=== PATIENT | female | born 1980 | race Caucasian/White ===

== ENCOUNTER 2021-05-15 16:54 | Emergency (ER) | payer OTHER, SELFPAY ==
[2021-05-15 17:12] VITALS: BP 141/91; PULSE 95; RESP 16; TEMP 37.1; O2SAT 99
--- NOTE | 2021-05-15 17:42 | ED.URI ---
HPI - URI/Sore Throat General Chief Complaint: Upper Respiratory Infection Stated Complaint: cough/cp/congestion Time Seen by Provider: 05/15/21 17:42 Source: patient and RN notes reviewed Mode of arrival: ambulatory Limitations: no limitations History of Present Illness HPI Narrative: 41-year-old female who is a current everyday smoker presents with concern for cough, shortness of breath and, pain to the left upper back and chest. Reports history of pneumonia and bronchitis. Reports she has been vaccinated for Covid. Reports rhinorrhea and nasal congestion. Reports history of seasonal allergies. Reports she has been taking Tessalon Perles and [id number] sinus medicine without relief. She denies fever, bodies, chills, sweats. MD elicited complaint: cough Related Data Allergies Allergy/AdvReac Type Severity Reaction Status Date / Time cephalexin Allergy Mild Unknown Verified 11/17/18 15:47 latex Allergy Mild HIVES Verified 12/18/10 12:27 Review of Systems Review of Systems: CONSTITUTIONAL: Denies malaise, chills, sweats, or fever. EYES: Denies visual changes, redness, or discharge. ENT: Reports rhinorrhea, congestion. Denies sinus pain, otalgia and sore throat. CARDIOVASCULAR: Denies chest pain, palpitations, or edema. RESPIRATORY: Reports cough, dyspnea, left upper back and chest wall pain GASTROINTESTINAL: Denies abdominal pain, nausea, vomiting, diarrhea SKIN: Denies rash or itching. MUSCULOSKELETAL: Denies myalgia. NEUROLOGIC: Denies headache. All systems reviewed & are unremarkable except as noted in HPI and below PMFSH Past Medical History Medical History (Updated 05/15/21 @ 17:56 by Tiffanie Traore NP) ADHD Anxiety Depression History of bipolar disorder Miscarriage OCD (obsessive compulsive disorder) Pneumonia Social History Social History Smoking status: Current every day smoker Alcohol intake: current Gender identity (if verbalized by the patient): Female Comments At time of signature, agree with nursing past medical, surgical, social and family history. There is no relevant family history pertinent to the presenting complaint Exam Narrative: GENERAL: Well-appearing, well-nourished, and in no acute distress. HEAD: Normocephalic EYES: PERRLA, conjunctivae clear ENT: Nares clear. Mucous membranes moist. TM pearly whitten with sharp light reflex bilaterally; no tragal tenderness. NECK: Supple. No lymphadenopathy CHEST: Clear to auscultation, breath sounds equal. No wheezing, rhonchi, rales, or stridor. No respiratory distress, speaks in full sentences. HEART: Regular rate and rhythm. No murmur heard. SKIN: Warm, dry, no rash. NEURO: Alert and oriented x3. PSYCH: Normal mood and affect Course Course Emergency Course: Patient is aware of diagnosis, understands and agrees to treatment plan. Anticipatory guidance given. Patient agrees to follow-up as directed and is aware of reasons to seek care at the emergency department. Portions of this record may have been created with voice recognition software Vital Signs Vital signs: Vital Signs Temperature 98.7 F 05/15/21 17:12 Pulse Rate 95 05/15/21 17:12 Respiratory Rate 16 05/15/21 17:12 Blood Pressure 141/91 H 05/15/21 17:12 Pulse Oximetry 99 05/15/21 17:12 Temperature 98.7 F 05/15/21 17:12 Pulse Rate 95 05/15/21 17:12 Respiratory Rate 16 05/15/21 17:12 Blood Pressure 141/91 H 05/15/21 17:12 Pulse Oximetry 99 05/15/21 17:12 Reviewed. Patient has been instructed to follow up with her primary care provider within the next week regarding her elevated blood pressure today. MDM - URI/Sore Throat MDM Narrative Medical decision making narrative: Differential diagnosis considered: George virus, strep pharyngitis, allergic rhinitis, upper respiratory tract infection, sinusitis, rhinosinusitis, nasopharyngitis. viral pharyngitis, otitis media, otitis externa, pneumonia, bronchit
== END 2021-05-15 18:00 | disposition home or self-care (01) ==
PROVIDERS: Emergency Provider Nurse Practitioner
DX: J40 Bronchitis, not specified as acute or chronic (principal); F17.200 Nicotine dependence, unspecified, uncomplicated
CPT/HCPCS: 99213; G0463

== ENCOUNTER 2021-07-30 10:00 | Emergency (ER) | payer OTHER, SELFPAY ==
[2021-07-30 10:12] VITALS: BP 159/103; PULSE 85; RESP 16; TEMP 36.4; O2SAT 100
--- NOTE | 2021-07-30 10:12 | ED.EAR ---
HPI - Ear Problem General Chief complaint: Ear Stated complaint: Ear Pain Time Seen by Provider: 07/30/21 10:15 Source: patient, family and RN notes reviewed Mode of arrival: ambulatory Limitations: no limitations History of Present Illness HPI Narrative: Charis is a 41-year-old female patient [facility] by [facility] son. Patient states she has a 3-day history of ear pain, sinus congestion and sore throat. Patient is complaining of lymph node swelling in her neck. Patient has been taking Aleve and DayQuil and NyQuil. MD Complaint: ear pain Related Data Allergies Allergy/AdvReac Type Severity Reaction Status Date / Time cephalexin Allergy Mild Unknown Verified 07/30/21 10:26 latex Allergy Mild HIVES Verified 07/30/21 10:26 Review of Systems Review of Systems: CONSTITUTIONAL: Denies body aches, fever, chills, or sweats. EYES: Denies visual changes, redness, or discharge. ENT: Denies rhinorrhea, + congestion, +sore throat, + otalgia. CARDIOVASCULAR: Denies chest pain, palpitations, or edema. RESPIRATORY: Denies cough or dyspnea. GASTROINTESTINAL: Denies abdominal pain, nausea, vomiting, or diarrhea. GENITOURINARY: Denies dysuria or hematuria. SKIN: Denies rash, itching, or wounds. MUSCULOSKELETAL: Denies back pain, joint pain, or myalgia. NEUROLOGIC: Denies headache, numbness, tingling, or weakness. PSYCH: Denies depression or anxiety. All systems reviewed & are unremarkable except as noted in HPI and below PMFSH Past Medical History Medical History (Updated 07/30/21 @ 10:27 by LISBET Ayon) ADHD Anxiety Depression History of bipolar disorder Miscarriage OCD (obsessive compulsive disorder) Pneumonia Social History Social History Smoking status: Current every day smoker Alcohol intake: current Gender identity (if verbalized by the patient): Female Exam Narrative: GENERAL: Well-appearing, well-nourished, and in no acute distress. HEAD: Normocephalic, atraumatic. EYES: EOMI. No redness or drainage. Conjunctivae normal. ENT: Mucous membranes pink and moist. Nares clear. No rhinorrhea. Bilateral TMs are dull with moderate amount of bulging; no erythema is noted. Posterior pharynx is erythemic with mild edema and no exudate. Uvula midline. NECK: Normal AROM. Supple. Anterior cervical lymphadenopathy. CHEST: No respiratory distress. Clear to auscultation. MUSCULOSKELETAL: No bony tenderness. EXTREMITIES: Normal range of motion. No edema. SKIN: Warm, dry, no rash. Capillary refill normal. Normal skin turgor. NEURO: No focal deficits. Alert and oriented x3. Gait steady. PSYCH: Normal affect. No signs of depression or anxiety. Course Vital Signs Vital signs: Vital Signs Temperature 36.4 C L 07/30/21 10:12 Pulse Rate 85 07/30/21 10:12 Respiratory Rate 16 07/30/21 10:12 Blood Pressure 159/103 H 07/30/21 10:12 Pulse Oximetry 100 07/30/21 10:12 Temperature 36.4 C L 07/30/21 10:12 Pulse Rate 85 07/30/21 10:12 Respiratory Rate 16 07/30/21 10:12 Blood Pressure 159/103 H 07/30/21 10:12 Pulse Oximetry 100 07/30/21 10:12 Reviewed. Pt has been instructed to follow up with her PCP regarding her elevated blood pressure today. Medical Decision Making MDM Narrative Medical decision making narrative: Patient has sinus congestion, ear pain and sore throat with lymph node swelling for 3 days. Patient has been using Aleve, DayQuil and NyQuil for symptom relief. Patient was educated that this is a viral illness and will most likely last up to 10 to 14 days. Patient was instructed to follow-up with her primary care physician for continued complaints after 10 days. Or sooner for worsening of symptoms. Patient will given a short burst of prednisone for relief of ear pressure and nasal congestion. Differential Diagnosis Differential Diagnosis: Pharyngitis, viral illness, nasopharyngitis Medi
== END 2021-07-30 10:35 | disposition home or self-care (01) ==
PROVIDERS: Emergency Provider Nurse Practitioner Family
DX: J00 Acute nasopharyngitis [common cold] (principal); F17.200 Nicotine dependence, unspecified, uncomplicated
CPT/HCPCS: 99213; G0463

== ENCOUNTER 2022-04-11 08:20 | Emergency (ER) | payer BC, OTHER, SELFPAY ==
[2022-04-11 08:32] VITALS: BP 155/90; PULSE 91; RESP 16; TEMP 37.1; O2SAT 99
[2022-04-11 08:43] VITALS: BP 155/90; PULSE 91; RESP 16; TEMP 37.1; O2SAT 99
--- NOTE | 2022-04-11 08:43 | ED.GENADULT ---
HPI - General Adult General Chief complaint: Dental/Oral Stated complaint: rt ear pain Time Seen by Provider: 04/11/22 08:35 Source: patient Mode of arrival: ambulatory History of Present Illness HPI narrative: 42-year-old female presented for complaint of right ear pain and swelling in front of the ear, since this morning. States it feels tender from the right temporal down to the jaw. She used warm coffee cup next to face for pain. Endorses increased sinus congestion and right chest heaviness since getting more animals at home the last few weeks. Denies dental pain/injury, nausea, vomiting, fever or chills. Denies popping/clicking or jaw sticking. Related Data Allergies Allergy/AdvReac Type Severity Reaction Status Date / Time cephalexin Allergy Mild Unknown Verified 04/11/22 08:27 latex Allergy Mild HIVES Verified 04/11/22 08:27 Review of Systems Review of Systems: CONSTITUTIONAL: Denies body aches, fever, chills ENT: Denies rhinorrhea, congestion, sore throat CARDIOVASCULAR: Denies chest pain, palpitations RESPIRATORY: Denies cough or dyspnea. SKIN: Denies rash, itching, or wounds. MUSCULOSKELETAL: Denies myalgia. NEUROLOGIC: Denies headache, numbness, tingling, or weakness. [facility] Past Medical History Medical History ADHD Anxiety Depression History of bipolar disorder Miscarriage OCD (obsessive compulsive disorder) Pneumonia Social History Social History Smoking status: Current every day smoker Alcohol intake: current Gender identity (if verbalized by the patient): Female Comments At time of signature, I have reviewed and agree with nursing past medical, surgical, social and family history unless otherwise noted. Please see nursing chart for further information. There is no relevant family history pertinent to the presenting complaint Exam Narrative: GENERAL: Appears in pain; no acute distress. HEAD: Normocephalic, atraumatic. EYES: EOMI. No redness or drainage. Conjunctivae normal. ENT: Right preauricular swelling, mild erythema, tender, with approx 2mm firm subcutaneous nodule at center c/w sialoadenitis; Mucous membranes pink and moist. TMs normal bilaterally. Throat normal. Uvula midline. NECK: Normal AROM. No lymphadenopathy. CHEST: No respiratory distress. Clear to auscultation. HEART: Regular rate and rhythm. No murmur appreciated. SKIN: Warm, dry, no rash. Normal skin turgor. NEURO: No focal deficits. Alert and oriented x3. Gait steady. Course Course Emergency Course: Patient is aware of diagnosis, understands and agrees to treatment plan. Anticipatory guidance given. Patient agrees to follow-up as directed and is aware of reasons to seek care at the emergency department. Portions of this record may have been created with voice recognition software Level of Care: Express Care Visit Vital Signs Vital signs: Vital Signs Temperature 98.8 F 04/11/22 08:32 Pulse Rate 91 04/11/22 08:32 Respiratory Rate 16 04/11/22 08:32 Blood Pressure 155/90 H 04/11/22 08:32 Pulse Oximetry 99 04/11/22 08:32 Oxygen Delivery Room Air 04/11/22 08:32 Temperature 98.8 F 04/11/22 08:43 Pulse Rate 91 04/11/22 08:43 Respiratory Rate 16 04/11/22 08:43 Blood Pressure 155/90 H 04/11/22 08:43 Pulse Oximetry 99 04/11/22 08:43 Oxygen Delivery Room Air 04/11/22 08:43 Medical Decision Making MDM Narrative Medical decision making narrative: PE and presentation c/w sialoadenitis. She also reports increased allergies r/t animals and given smoking history, she feels increased right chest heaviness. Will give Rx inhaler and advise allergic rhinitis tx in addition to sialoadenitis treatment. Aware of s/s to go to the Er. Will f/u with pcp. Differential Diagnosis Differential Diagnosis: allergic rhinitis, otitis externa, TM rupture, cholesteatoma, foreign
== END 2022-04-11 08:59 | disposition home or self-care (01) ==
PROVIDERS: Emergency Provider Nurse Practitioner Family
DX: K11.21 Acute sialoadenitis (principal); J30.9 Allergic rhinitis, unspecified
CPT/HCPCS: 99213; G0463

== ENCOUNTER 2023-08-04 09:11 | Emergency (ER) | payer BC, OTHER, SELFPAY ==
--- NOTE | ~2023-08-04 | XR_ITS ---
EXAMINATION: XR chest 2V DATE: 08/04/2023 09:41 INDICATION: Shortness of breath and cough TECHNIQUE: PA and lateral views of the chest are obtained. COMPARISON: 04/20/2019 FINDINGS: The lungs are free of acute opacities. No pleural effusion or pneumothorax. The cardiomedia stinal silhouette is normal. Partially imaged orthopedic screws are noted in the left humeral head. IMPRESSION: 1. No acute cardiopulmonary abnormality. Reviewed, dictated and finalized at location [facility]
--- NOTE | 2023-08-04 09:17 | ED.GENADULT ---
HPI - General Adult General Chief complaint: Upper Respiratory Infection Stated complaint: SOB/Weakness Time Seen by Provider: 08/04/23 09:21 Source: patient, RN notes reviewed and old records reviewed Mode of arrival: ambulatory Limitations: no limitations History of Present Illness HPI narrative: 43-year-old female presents to the [facility] complaints shortness of breath weakness. Tested positive for COVID 7 dec, 5 days ago, started on Paxlovid 4 days ago, patient states that she is actually feeling worse since starting the medication. States that she feels like she is dehydrated and possibly has pneumonia. Onset (ago): day(s) (4) Treatments prior to arrival: none Related Data Home Medications Medication Instructions Recorded Confirmed albuterol sulfate 90 mcg/actuation See Rx Instructions .Route .COMPLEX 08/04/23 08/04/23 aerosol inhaler cetirizine 10 mg tablet 10 mg PO DAILY 08/04/23 08/04/23 famotidine 20 mg tablet 20 mg PO BID 08/04/23 08/04/23 lisinopril 20 mg tablet 20 mg PO DAILY 08/04/23 08/04/23 nirmatrelvir 300 mg (150 mg See Rx Instructions .Route .COMPLEX 08/04/23 08/04/23 x2)-ritonavir 100 mg tablet,dose pack (Paxlovid) Allergies Allergy/AdvReac Type Severity Reaction Status Date / Time cephalexin Allergy Mild Unknown Verified 08/04/23 10:44 latex Allergy Mild HIVES Verified 08/04/23 10:44 Review of Systems Review of Systems: All systems reviewed & are unremarkable except as noted in HPI and below Constitutional: Constitutional: Reports as per HPI Eyes: Eyes: Reports no additional eye complaints ENT: Reports system reviewed and no additional complaints, except as documented Cardiovascular: Cardiovascular: Reports no additional cardiovascular complaints, Denies chest pain and Denies dyspnea Respiratory: Respiratory: Reports as per HPI, Denies chest congestion, Reports cough and Denies dyspnea Gastrointestinal: Gastrointestinal: Reports no additional gastrointestinal complaints, Denies abdominal pain, Denies nausea and Denies vomiting Musculoskeletal: Musculoskeletal: Reports no additional musculoskeletal complaints Integumentary/Breasts: Skin/Breast: Reports system reviewed and no additional complaints, except as docu Neurologic: Reports system reviewed and no additional complaints, except as documented Psychiatric: Psychiatric: Reports no additional psychiatric complaints Allergic/Immunologic: Allergic/Immunologic: Reports no additional allergic/immunologic complaints PMFSH Past Medical History Medical History ADHD Anxiety Depression History of bipolar disorder Miscarriage OCD (obsessive compulsive disorder) Pneumonia Social History Social History Smoking status: Current every day smoker Alcohol intake: current Gender identity (if verbalized by the patient): Female Comments At the time of my signature, I reviewed and agree with the nursing past medical, surgical, social, and family history. There is no relevant family history pertinent to the patient complaint. Exam Const: General: cooperative, healthy appearing, comfortable, no acute distress, well developed, alert and well nourished Nutritional Appearance: well nourished and obese Orientation/consciousness: patient oriented x3 Limitations: no limitations HENMT: Head: normal to inspection Ears: hearing grossly normal bilaterally, external ears normal, TM's normal bilaterally, EAC's normal, mastoids normal and no periauricular adenopathy Face/Nose/Sinus: Normal external nose present, Normal nares present, Normal nasal mucous membranes and turbinates present, normal facial exam and face symmetric Face and sinus: normal facial exam and face symmetric Mouth: Yes Normal oral and palatal mucosa present, Yes lip normal and Yes moist mucous membranes Throat: posterior oropharynx normal, tonsils normal, uvula midli
[2023-08-04 09:18] VITALS: BP 151/97; PULSE 93; RESP 16; TEMP 37.2; O2SAT 100
== END 2023-08-04 09:59 | disposition home or self-care (01) ==
PROVIDERS: Emergency Provider Nurse Practitioner; PCP Physician Assistant
DX: B34.9 Viral infection, unspecified (principal); Z86.16 Personal history of COVID-19
CPT/HCPCS: 71046; 99213; G0463

== ENCOUNTER 2024-10-02 08:20 | Emergency (ER) | payer BC, SELFPAY ==
[2024-10-02 08:22] VITALS: BP 166/96; PULSE 107; RESP 18; TEMP 36.8; O2SAT 100
--- OUTSIDE RECORDS SUMMARY | 2024-10-02 08:22 | XMS_ITS | Patient Health Record ---
Author Organization [facility] Planning Address [address] [place] [id number] Care Team Providers Care Mind Reader Name Role Phone Biju Adams Primary Care Provider Sanchez Samson Unavailable [phone] Allergies Allergen (clinical drug ingredient) Drug/Non Drug Allergy documented on EMR Reaction Allergy Type Onset Date Status cephalexin Cephalexin Unknown Drug Allergy Activ e Reason For Referral No Information Medications Medication SIG (Take, Route, Frequency, Duration) Notes Start Date End Date Status Lisinopril 10 MG 1 tablet Orally Once a day for 30 day(s) 03/06/2017 Active Citalopram Hydrobromide 10 MG 1 tablet Orally Once a day for 30 Active Social History Tobacco Use: Social History Observation Description Date Details (start date - stop date) Current Smoker NA - NA Tobacco Use/Smoking Question Answer Notes Are you a current smoker How often do you smoke cigarettes? every day How many cigarettes a day do you smoke? 11-20 Alcohol Screen (Audit-C) Question Answer Notes Did you have a drink containing alcohol in the p ast year? No Points 0 Interpretation Negative Tobacco use other than smoking: Question Answer Notes Are you an other tobacco user? No Problems Problem Type SNOMED Code ICD Code Onset Dates Problem Status W/U Status Risk Notes Problem 07986638 Essential hypertension (I10) Active confirmed Problem 97667875 Anxiety (F41.9) Active confirmed Problem 05448941 Tobacco abuse (Z72.0) Active confirmed Plan Of Treatment No Information Insurance Providers Payer Name Payer Address Payer Phone Subscriber Number Group Number Insured Name Patient Relationship to Insured Coverage Start Date Coverage End Date [employer] [place] PPO [address] [place] [phone] [id number] Charis Bryan Self - patient is the insured 2015 Medical (General) History Surgical History Surgery Date(Month/Year) Bilateral tubal ligation 2011
--- OUTSIDE RECORDS SUMMARY | 2024-10-02 08:22 | XMS_ITS | Referral Summary ---
Author Organization [facility] Address [address] [place] [address] Care Team Providers Care Engineering Technical Specialist Name Role Phone Marlon Olmedo Primary Care Provider [phone] Allergies Active Allergy Reactions Criticality Noted Date Comments Adhesive Rash Medium 02/12/2023 Cephalexin Dizziness,Nausea onl y,Other (See comments) High 03/13/2011 Swelling Medications famotidine (PEPCID) 20 mg tabletIndication s:Hives Take 1 tablet (20 mg total) by mouth 2 (two) times a day 60 tablet 11 2 Active cetirizine (ZyrTEC) 10 mg tabletIndication s:Hives Take 1 tablet (10 mg total) by mouth daily as needed for allergies 30 tablet 11 3 Active Additional Information Patient taking differently:10 mg oralEvery morning, Reported on 02/09/2023 lisinopriL (PRINIVIL,ZESTRI L) 20 mg tabletIndication s:Primary hypertension Take 1 tablet (20 mg total) by mouth daily 90 tablet 4 3 Active Additional Information Patient taking differently:20 mg oralEvery morning, Indications: hypertension, Reported on 02/09/2023 diazePAM (VALIUM) 5 mg tablet Take 1 tablet (5 mg total) by mouth every 8 (eight) hours as needed for anxiety or muscle spasms 12 tablet 3 Active ibuprofen (ADVIL,MOTRIN) 600 mg tablet Take 1 tablet (600 mg total) by mouth every 6 (six) hours as needed for pain (pain) 60 tablet 3 Active inulin (FIBER GUMMIES ORAL) Take by mouth as needed Active naproxen (ALEVE) 220 mg tabletIndication s:Pain Take 1 tablet (220 mg total) by mouth daily as needed for pain Active senna (SENOKOT) 8.6 mg tablet Take 1 tablet by mouth daily as needed for constipation for up to 7 days 7 tablet 3 Active aspirin 81 mg enteric coated tablet Take 1 tablet (81 mg total) by mouth 2 (two) times a day for 14 days 28 tablet 3 Active cyclobenzaprine (FLEXERIL) 10 mg tablet Take 1 tablet (10 mg total) by mouth 3 (three) times a day as needed for muscle spasms 27 tablet 3 Active albuterol HFA (PROVENTIL HFA,VENTOLIN HFA,PROAIR HFA) 90 mcg/actuation inhaler Inhale 2 puffs every 4 (four) hours as needed for wheezing 8 g 3 Active Active Problems Problem Noted Date Diagnosed Date Closed fracture of proximal end of left humerus, unspecified fracture morphology, initial encounter 02/12/2023 Closed fracture of left proximal humerus 023 COVID 10/09/2022 Assessment & Plan (10/09/2022 12:03 PM PHP CONSULTANT): This is new, we discussed [id number]-[id number] medications and quarantine and signs and symptoms that would warrant further evaluation and treatment Gastroesophageal reflux disease without esophagi tis 08/28/2022 Assessment & Plan (10/09/2022 12:02 PM PHP CONSULTANT): Images from the original note were not included. Avoid spicy, fried, greasy foods Keep hydrated with clear liquids Elevate HOB 2- 3 inches Avoid or cut down on caffeines, chocolates, and ETOH No late meals, or heavy meals after 7 pm Reg daily exercise No tight fitting clothing Stop smoking - if smoker Watch for worsening symptoms - ie diarrhea, vomiting, nausea, blood per rectum, vomiting up blood ,fever, arthralgias, rash etc. RTC prn or if new symptoms arise Pt or parent verbalizes understanding Assessment & Plan (09/29/2022 9:03 AM PHP CONSULTANT): Images from the original note were not included. Avoid spicy, fried, greasy foods Keep hydrated with clear liquids Elevate HOB 2- 3 inches Avoid or cut down on caffeines, chocolates, and ETOH No late meals, or heavy meals after 7 pm Reg daily exercise No tight fitting clothing Stop smoking - if smoker Watch for worsening symptoms - ie diarrhea, vomiting, nausea, blood per rectum, vomiting up blood ,fever, arthralgias, rash etc. RTC prn or if new symptoms arise Pt or parent verbalizes understanding Assessment & Plan (09/01/2022 10:02 AM PHP CONSULTANT): Patient did have an episode where she had some mild anterior pain it has not reoccurred it was not with activity I discussed that would like to know if this happens again I want her to increase her Pepcid to twice a day Hives 07/31/2022 Assessment & Plan (09/01/2022 10:02 AM PHP CONSULTANT): These are not controlled we are going back on her H1 and H2 blockers for couple weeks as these worked if her symptoms persist I plan on send her to Allergy immunology Assessment & Plan (07/31/2022 10:01 AM PHP CONSULTANT): This is new an uncontrolled I suspected due to her rapid am going to block the H1 and H2 pathway for 30 days see if the hives resolve if they return after treatment we will suspect is due to the rabbit Primary hypertension 07/31/2022 Assessment & Plan (10/09/2022 12:03 PM PHP CONSULTANT): Images from the original note were not included. This is a stable chronic condition. Monitor blood pressure, call if out of parameters as we discussed. Low sodium and caffeine diet. baby asa as discussed if applicable. Diet, exercise and weight reduction. Labs as ordered. F/U routine Assessment & Plan (09/29/2022 9:03 AM PHP CONSULTANT): Images from the original note were not included. This is a stable chronic condition. Monitor blood pressure, call if out of parameters as we discussed. Low sodium and caffeine diet. baby asa as discussed if applicable. Diet, exercise and weight reduction. Labs as ordered. F/U routine Assessment & Plan (09/01/2022 10:03 AM PHP CONSULTANT): This is not an optimal control am going to increase her lisinopril to 20 mg I ordered labs show do a 5 day blood pressure in 2 weeks Assessment & Plan (07/31/2022 10:01 AM PHP CONSULTANT): This is new an uncontrolled am going to get her started on medications we will recheck her blood pressure at her next visit in 4 weeks and get labs Routine general medical exam ination at a health care facility 07/30/2022 Assessment & Plan (07/31/2022 10:02 AM PHP CONSULTANT): Healthcare maintenance updated, mammogram ordered, we are scheduling a Pap smear and she is getting a tetanus shot today Vitamin D deficiency 04/28/2019 Anxiety disorder 04/11/2019 Smoker 04/11/2019 Benign nevus of skin 04/11/2019 ADHD Assessment & Plan (10/09/2022 12:02 PM PHP CONSULTANT): CPM Assessment & Plan (09/29/2022 9:03 AM PHP CONSULTANT): Not controlled , increased to 15 bid Assessment & Plan (09/01/2022 10:02 AM PHP CONSULTANT): This is not controlled, I am going to give her Adderall 10 mg she will update me in 30 days she is taking this before Assessment & Plan (07/31/2022 10:01 AM PHP CONSULTANT): This is uncontrolled and I am going to get her started back on her medication but I have asked her to hold off until we control her blood pressure Immunizations Name Administration Dates Next Due Influenza, Unspecified 07/29/2022(Deferr ed: Patient Refused),07/09/2022(Deferred: Patient decision),06/24/2021(Deferred: Patient Refused) Tdap 01/30/2023,07/31/2022 Social History Tobacco Use Types Packs/Day Years Used Date Smoking Tobacco: Former Cigarettes 1 21 2 001 - 2021 Cigarillos Smokeless Tobacco: Never AUDIT-C Answer Date Recorded Q1: How often do you have a drink containing alc ohol? Monthly or less 10/09/2022 Q2: How many drinks containi ng alcohol do you have on a typical day when you are drinking? 1 or 2 10/09/2022 Frequency of Binge Drinking Not on file 09/24 PHQ-2 Answer Date Recorded PHQ-2 Total Score (If total score is 3 or more points, staff should administer the PHQ-9) 0 07/31/2022 Personal Safety Answer Date Recorded Have you ever been in or are you currently in a harmful physical or emotional relationship or is someone making you feel afraid or unsafe? Denies 02/12/2023 Comments No Sex and Gender Information Value Date Recorded Sex Assigned at Not on file Legal Sex Female 7:08 PM PHP CONSULTANT Gender Identity Not on file Sexual Orientation Not on file Last Filed Vital Signs Vital Sign Reading Time Taken Comments Blood Pressure 160/85 02/13/2023 7:15 AM CDT Pulse 82 02/13/2023 7:15 AM CDT Temperature 36.6 C (97.9 F) 02/13/2023 7:15 AM CDT Respiratory Rate 16 02/13/2023 7:15 AM CDT Oxygen Saturation 99% 02/13/2023 7:15 AM CDT Inhaled Oxygen Concentration - - Weight 95.7 kg (211 lb) 02/12/2023 10:05 PM CDT Height 175.3 cm (5' 9 ) 02/12/2023 10:05 PM CDT Body Mass Index 31.16 02/12/2023 10:05 PM CDT Plan of Treatment Not on file Medical Devices Implanted Type Area Fabric Sourcer Device Identifier Shelf Expiration Date Model / Serial / Lot Allosource 10cm Frozen Graft Bone Fibula Segment [id number] - [id number] - [id number] Implanted:Qty: 1 on 02/12/2023 by Clifford Dugan MD at [facility] Left: Humerus Allosource 01/27/2027 [id number] / [id number] / Synthes 3.5mm 2.9mm 44mm Self Tap Lock Stardrive Conical Head T15 Full 212.134 - [id number] Implanted:Qty: 1 on 02/12/2023 by Clifford Dugan MD at [facility] Left: Humerus Synthes I 212.134 / / Synthes 3.5mm 2.9mm 28mm Self Tap Lock Stardrive Conical Head T15 Full 212.110 - [id number] Implanted:Qty: 1 on 02/12/2023 by Clifford Dugan MD at [facility] Left: Humerus Synthes I 212.110 / / Synthes 3.5mm 2.9mm 26mm Self Tap Lock Stardrive Conical Head T15 Full 212.109 - [id number] Implanted:Qty: 1 on 02/12/2023 by Clifford Dugan MD at [facility] Left: Humerus Synthes I 212.109 / / Synthes Lcp Combi Philos [id number] 3 Hole Shaft Lock Compression 241.901 - [id number] Implanted:Qty: 1 on 02/12/2023 by Clifford Dugan MD at [facility] Left: Humerus Synthes I 241.901 / / Synthes 3.5mm 2.9mm 50mm Self Tap Lock Stardrive Conical Head T15 Full 212.121 - [id number] Implanted:Qty: 1 on 02/12/2023 by Clifford Dugan MD at [facility] Left: Humerus Synthes I 212.121 / / Synthes 3.5mm 2.9mm 38mm Self Tap Lock Stardrive Conical Head T15 Full 212.116 - [id number] Implanted:Qty: 1 on 02/12/2023 by Clifford Dugan MD at [facility] Left: Humerus Synthes I 212.116 / / Synthes 3.5mm 2.9mm 52mm Self Tap Lock Fix Angle Low Profile Pelvis Full 212.122 - [id number] Implanted:Qty: 1 on 02/12/2023 by Clifford Dugan MD at [facility] Left: Humerus Synthes I 212.122 / / Synthes 3.5mm 2.9mm 45mm Self Tap Lock Stardrive Conical Head T15 Full 212.119 - [id number] Implanted:Qty: 2 on 02/12/2023 by Clifford Dugan MD at [facility] Left: Humerus Synthes I 212.119 / / Synthes 3.5mm 6mm 32mm 2.5mm Self Tap Small Hexagonal Socket Low Profile 204.832 - [id number] Implanted:Qty: 2 on 02/12/2023 by Clifford Dugan MD at [facility] Left: Humerus Synthes I 204.832 / / Synthes 3.5mm 2.9mm 46mm Self Tap Lock Stardrive Conical Head T15 Full 212.136 - [id number] Implanted:Qty: 2 on 02/12/2023 by Clifford Dugan MD at [facility] Left: Humerus Synthes I 212.136 / / Explanted Type Area Fabric Sourcer Device Identifier Shelf Expiration Date Model / Serial / Lot Synthes Lcp 1.6mm 200mm Drill Tip Percutaneous Guidewire Orthopedic 001 - [id number] Explanted:Qty: 2 on 02/12/2023 by Clifford Dugan MD at [facility] Left: Humerus Synthes I / / Procedures Procedure Name Priority Date/Time Associated Diagnosis Comments DIAGNOSTIC MAMMOGRAM BILATERAL W DELPHINE Schedule Routine, Read Routine (OP Routine) 11/24/2022 2:40 PM CDT Abnormal mammogram PAP AND HIGH RISK HPV, REFLEX TO GENOTYPING Routine 09/01/2022 11:41 AM PHP CONSULTANT Routine general medical examination at a health care facility from Last 3 Months or Most Recently Relevant to Health Maintenance Results * DIAGNOSTIC MAMMOGRAM BILATERAL W DELPHINE (11/24/2022 2:40 PM CDT) Anatomical Region Laterality Modality Breast Bilateral Mammography 11/24/2022 3:01 PM CDT Impressions 11/24/2022 3:05 PM CDT No suspicious findings are confirmed in the right breast in the areas of concern on recent screening mammogram. The asymmetries do not persist. The microcalcifications of concern in the lower outer left breast have benign morphology and distribution. No associated mass architectural distortion noted. Continued monthly breast self examination is recommended, and annual bilateral screening mammography in 12 months. BIRADS: 2 - Benign The patient was notified of the results at the time of the examination. THIS IS AN ELECTRONICALLY VERIFIED FINAL REPORT 11/24/2022 3:05 PM - Electronically signed by Indio Mir M.D. RL: RL Report ID: [id number] Reading [facility] Narrative 11/24/2022 3:05 PM CDT EXAM DESCRIPTION: DIAGNOSTIC MAMMOGRAM BILATERAL W DELPHINE REASON FOR STUDY: 42-year-old woman comes in today for evaluation of right breast asymmetries, and microcalcifications in the left breast. COMPARISON: Screening mammogram dated 11/10/2022. TECHNIQUE: CC and MLO spot compression and LM digital breast tomosynthesis of the right breast with C view was performed. LM view digital breast tomosynthesis of the left breast with C view was performed. Additional full field 2D digital mammograms of the left breast performed in the spot magnification cc and spot magnification LM projections. FINDINGS: DENSITY: There are scattered areas of fibroglandular density. The findings of concern in the right breast seen on recent screening mammogram do not persist. Spot compression views demonstrate only benign overlapping fibroglandular densities without suspicious solid or cystic masses. Spot magnification views of the microcalcifications of concern in the lower outer left breast at middle depth demonstrate loosely grouped round and punctate calcifications without associated mass architectural distortion. These are considered benign. Marlon ALCARAZ IMG MAMMO PROCEDURES Final Resu lt * Pap and High Risk HPV, reflex to Genotyping (09/01/2022 11:41 AM PHP CONSULTANT) Thin prep (Pap test) 09/01/2022 11:41 AM PHP CONSULTANT 09/02/2022 11:41 AM PHP CONSULTANT Narrative PATHOLOGY [facility] - 09/04/2022 1:50 PM PHP CONSULTANT [facility] Department of Pathology [address] [place], [place] [id number] Final Report with Addendum Note to Patients: This report may contain a detailed description of human tissue sent by a health care provider to the laboratory for pathologic evaluation. The content of this report is essential for diagnosis and may provide important critical findings. This information may be unfamiliar to patients to review without a medical professional present. It is advised that the patient review this report in the presence of a health care provider who can answer questions and explain the details. Patient Name: NEVILLE PIERRE Address: [address] [place] [address] Gender: F : 1980 (Age: 42) Service: Location: N : [id number] Hospital #: [id number] Patient Type: [facility] SPECIMEN Taken: 09/01/2022 Received: 09/02/2022 Accessioned:: 09/03/2022 Reported: 09/04/2022 Physician(s): Marlon Olmedo PA-C [facility] Diagnosis: Source of Specimen: SCREENING THIN PREP IMAGED PAP w/ HPV Specimen Adequacy: - Satisfactory for evaluation; endocervical/transformation zone component present General Category: - Negative for intraepithelial lesion or malignancy RAFAEL Mora(ASCP) Report Electronically Reviewed and Signed Out By RAFAEL Mora(ASC) 09/04/2022 13:50:02Addenda: HPV Test Interpretation NEGATIVE for types 16, 18, 31, 33, 35, 39, 45, 51, 52, 56, 58, 59, 66 and 68. Test performed utilizing Gen-Probe Aptima assay. RAFAEL Bowser(ASCP)Report Electronically Reviewed and Signed Out By RAFAEL Bowser(ASC) 09/04/2022 10:19:59 Specimen(s) Received: A: SCREENING THIN PREP IMAGED PAP w/ HPV Clinical History: Last Menstrual Period: 10 years ago Menstrual History: Ablation The Pap test is a screening test used to aid in the detection of cervical cancer and its precursors. It should not be the sole means by which malignant and premalignant lesions are diagnosed. Both false negative and false positive results may occur. It also has poor sensitivity for the detection of endometrial lesions and should not be used to evaluate suspected endometrial abnormalities. For these reasons it is most important to obtain Pap tests at regular intervals. The performance characteristics of some immunohistochemical stains, fluorescence in-situ hybridization tests and immunophenotyping by flow cytometry cited in this report (if any) were determined by the Surgical Pathology Department at [facility] as part of an ongoing quality nurse program and in compliance with federally mandated regulations drawn from the Clinical Laboratory Improvement Act of 1988 (CLIA '88). Some of these tests rely on the use of analyte specific reagents and are subject to specific labeling requirements by the US Food and Drug Administration. Such diagnostic tests may only be performed in a facility that is certified by the Department of Health and Human Services as a high complexity laboratory under CLIA '88. The FDA has determined that such clearance or approval is not necessary. This test is used for clinical purposes. It should not be regarded as investigational or for research. Nevertheless, federal rules concerning the medical use of analyte specific reagents require that the following disclaimer be attached to the report: This test was developed and its performance characteristics determined by the Surgical Pathology Department [facility]. It has not been cleared or approved by the U. S. Food and Drug Administration. Marlon ALCARAZ LAB CYTOLOGY ORDERABLES Final R esult [facility] from Last 3 Months or Most Recently Relevant to Health Maintenance Insurance [facility] Member Subscriber Plan / Payer (Ef fective 2020-Present) Name:Neville Pierre Relation to Subscriber:Self Name:Neville Pierre Payer ID:[id number] (NAIC) Type:MEDICAID RISK OTHER Address: [address] [facility] [employer] CHO[facility]OS [facility] CHOICE OOS Member Subscriber Plan / Payer (Ef fective 2021-Present) Name:Neville Pierre Relation to Subscriber:Self Name:Neville Pierre Payer ID:[id number] (NAIC) Type:[employer] Address: [address] Advance Directives For more information, please contact: [phone] * Full Code (Latest Code Status on File) Date Activated Date Inactivated Comments 02/12/2023 10:20 PM 02/13/2023 3:54 PM Care Teams Engineering Technical Specialist Relationship Specialty Start Date End Date Marlon Olmedo PA PCP - General Family Medicine 07/31/22
--- OUTSIDE RECORDS SUMMARY | 2024-10-02 08:22 | XMS_ITS | Clinical Summary ---
Author Organization [facility] Address [address] [place] [address] Care Team Providers Care Loom Cleaner Name Role Phone Marlon Olmedo Primary Care Provider [phone] Allergies Active Allergy Reactions Criticality Noted Date [...] 10/09/2022 Assessment & Plan (10/09/2022 12:03 PM BRAKE LINING FINISHER): This is new, we discussed [id number] medications and quarantine and signs and symptoms that would warrant further evaluation and treatment Gastroesophageal reflux disease without esophagi tis 08/28/2022 Assessment & Plan (10/09/2022 12:02 PM BRAKE LINING FINISHER): Images from the original note were not [...] understanding Assessment & Plan (09/29/2022 9:03 AM BRAKE LINING FINISHER): Images from the original note were not [...] understanding Assessment & Plan (09/01/2022 10:02 AM BRAKE LINING FINISHER): Patient did have an episode where she had some mild anterior pain it has not reoccurred it was not with activity I discussed that would like to know if this happens again I want her to increase her Pepcid to twice a day Hives 07/31/2022 Assessment & Plan (09/01/2022 10:02 AM BRAKE LINING FINISHER): These are not controlled we are going back on her H1 and H2 blockers for couple weeks as these worked if her symptoms persist I plan on send her to Allergy immunology Assessment & Plan (07/31/2022 10:01 AM BRAKE LINING FINISHER): This is new an uncontrolled I suspected due to her rapid am going to block the H1 and H2 pathway for 30 days see if the hives resolve if they return after treatment we will suspect is due to the rabbit Primary hypertension 07/31/2022 Assessment & Plan (10/09/2022 12:03 PM BRAKE LINING FINISHER): Images from the original note were not included. This is a stable chronic condition. Monitor blood pressure, call if out of parameters as we discussed. Low sodium and caffeine diet. baby asa as discussed if applicable. Diet, exercise and weight reduction. Labs as ordered. F/U routine Assessment & Plan (09/29/2022 9:03 AM BRAKE LINING FINISHER): Images from the original note were not included. This is a stable chronic condition. Monitor blood pressure, call if out of parameters as we discussed. Low sodium and caffeine diet. baby asa as discussed if applicable. Diet, exercise and weight reduction. Labs as ordered. F/U routine Assessment & Plan (09/01/2022 10:03 AM BRAKE LINING FINISHER): This is not an optimal control am going to increase her lisinopril to 20 mg I ordered labs show do a 5 day blood pressure in 2 weeks Assessment & Plan (07/31/2022 10:01 AM BRAKE LINING FINISHER): This is new an uncontrolled am going to get her started on medications we will recheck her blood pressure at her next visit in 4 weeks and get labs Routine general medical exam ination at a health care facility 07/30/2022 Assessment & Plan (07/31/2022 10:02 AM BRAKE LINING FINISHER): Healthcare maintenance updated, mammogram ordered, we are scheduling a Pap smear and she is getting a tetanus shot today Vitamin D deficiency 04/28/2019 Anxiety disorder 04/11/2019 Smoker 04/11/2019 Benign nevus of skin 04/11/2019 ADHD Assessment & Plan (10/09/2022 12:02 PM BRAKE LINING FINISHER): CPM Assessment & Plan (09/29/2022 9:03 AM BRAKE LINING FINISHER): Not controlled , increased to 15 bid Assessment & Plan (09/01/2022 10:02 AM BRAKE LINING FINISHER): This is not controlled, I am going to give her Adderall 10 mg she will update me in 30 days she is taking this before Assessment & Plan (07/31/2022 10:01 AM BRAKE LINING FINISHER): This is uncontrolled and I am going to get her started back on her medication but I have asked her to hold off until we control her blood pressure Immunizations Name Administration Dates Next Due Influenza, Unspecified 07/29/2022(Deferr ed: Patient Refused),07/09/2022(Deferred: Patient decision),06/24/2021(Deferred: Patient Refused) Tdap 01/30/2023,07/31/2022 Surgical History Surgery Date Site/Laterality Comments TUBAL LIGATION 2011 COLONOSCOPY Medical History Medical History Date Comments Adhd PONV (postoperative nausea and vomiting) Motion sickness Family History Medical History Relation Name Comments htn Father Breast cancer Maternal Grandmother Lung cancer Mother Breast cancer Paternal Grandmother Anesthesia problems Neg Hx Malig Hypertension Neg Hx Malig Hyperthermia Neg Hx Pseudochol deficiency Neg Hx Relation Name Status Comments Father Alive Maternal Grandmother Mother Paternal Grandmother Social History Tobacco Use Types Packs/Day Years [...] on file Legal Sex Female 7:08 PM BRAKE LINING FINISHER Gender Identity Not on file Sexual Orientation Not on file Obstetrics History Para Term AB IAB SAB Ectopic Multiple Livin g Live Births 5 4 4 Date Outcome GA Total Labor Labor/2nd/3rd Weight Sex Type Anes PTL Skylar A1 A5 Name Clin Term Term Term Term Last Filed Vital Signs Vital Sign Reading [...] 02/12/2023 10:05 PM CDT Plan of Treatment Health Maintenance Due Date Last Done Comments Hepatitis C Screening 1980 Hepatitis B Screening 1999 Depression Screening 07/31/2023 07/31/2022 Cervical Cancer Screening 09/01/2023 09/01/2022 Regular Well Visit/Exam 18-64 09/01/2023 09/01/2022, 07/31/2022 Breast Cancer Screening-Mammogram 11/25/2023 11/24/2022, 11/10/2022 Covid-19 Vaccine (3 - 2023- season) 2024 02/03/2021, 01/13/2021 Influenza Vaccine (#1) 2024 DTaP/Tdap/Td Vaccine (3 - Td or Tdap) 01/30/2033 01/30/2023, 07/31/2022 HPV Vaccines Aged Out No longer eligi ble based on patient's age to complete this topic Pneumococcal vaccine <65 Aged Out No longer eligible based on patient's age to complete this topic Varicella Vaccines Discontinued Medical Devices Implanted Type Area Global Cto Device Identifier Shelf Expiration Date Model / Serial / Lot Allosource 10cm Frozen Graft Bone Fibula Segment [id number] - [id number] - [id number] Implanted:Qty: 1 on 02/12/2023 by Clifford Dugan MD at [facility] Left: Humerus Allosource 01/27/2027 [id number] / [id number] / Synthes 3.5mm 2.9mm 44mm Self Tap Lock Stardrive Conical Head T15 Full 212.134 - [id number] Implanted:Qty: 1 on 02/12/2023 by Clifford Dugan MD at [facility] Left: Humerus Synthes I 212.134 / / Synthes 3.5mm 2.9mm 28mm Self Tap Lock Stardrive Conical Head T15 Full 212.110 - [id number] Implanted:Qty: 1 on 02/12/2023 by Clifford Dugan MD at [facility] Left: Humerus Synthes I 212.110 / / Synthes 3.5mm 2.9mm 26mm Self Tap Lock Stardrive Conical Head T15 Full 212.109 - [id number] Implanted:Qty: 1 on 02/12/2023 by Clifford Dguan MD at [facility] Left: Humerus Synthes I 212.109 / / Synthes Lcp Combi Philos [id number] 3 Hole Shaft Lock Compression 241.901 - [id number] Implanted:Qty: 1 on 02/12/2023 by Clifford Dugan MD at [facility] Left: Humerus Synthes I 241.901 / / Synthes 3.5mm 2.9mm 50mm Self Tap Lock Stardrive Conical Head T15 Full 212.121 - [id number] Implanted:Qty: 1 on 02/12/2023 by Clifford Dugan MD at [facility] Left: Humerus Synthes I 212.121 / / Synthes 3.5mm 2.9mm 38mm Self Tap Lock Stardrive Conical Head T15 Full 212.116 - [id number] Implanted:Qty: 1 on 02/12/2023 by Clifford Dugan MD at [facility] Left: Humerus Synthes I 212.116 / / Synthes 3.5mm 2.9mm 52mm Self Tap Lock Fix Angle Low Profile Pelvis Full 212.122 - [id number] Implanted:Qty: 1 on 02/12/2023 by Clifford Dugan MD at [facility] Left: Humerus Synthes I 212.122 / / Synthes 3.5mm 2.9mm 45mm Self Tap Lock Stardrive Conical Head T15 Full 212.119 - [id number] Implanted:Qty: 2 on 02/12/2023 by Clifford Dugan MD at [facility] Left: Humerus Synthes I 212.119 / / Synthes 3.5mm 6mm 32mm 2.5mm Self Tap Small Hexagonal Socket Low Profile 204.832 - [id number] Implanted:Qty: 2 on 02/12/2023 by Clifford Dugan MD at [facility] Left: Humerus Synthes I 204.832 / / Synthes 3.5mm 2.9mm 46mm Self Tap Lock Stardrive Conical Head T15 Full 212.136 - [id number] Implanted:Qty: 2 on 02/12/2023 by Clifford Dugan MD at [facility] Left: Humerus Synthes I 212.136 / / Explanted Type Area Global Cto Device Identifier Shelf Expiration Date Model / Serial / Lot Synthes Lcp 1.6mm 200mm Drill Tip Percutaneous Guidewire Orthopedic - [id number] Explanted:Qty: 2 on 02/12/2023 by Clifford Dugan MD at [facility] Left: Humerus Synthes I / / Procedures Procedure Name Priority Date/Time Associated Diagnosis Comments DIAGNOSTIC MAMMOGRAM BILATERAL W DELPHINE Schedule Routine, Read Routine (OP Routine) 11/24/2022 2:40 PM CDT Abnormal mammogram PAP AND HIGH RISK HPV, REFLEX TO GENOTYPING Routine 09/01/2022 11:41 AM BRAKE LINING FINISHER Routine general medical examination at a [facility] care facility from Last 3 Months or [...] Electronically signed by Indio Mir M.D. RL: YOUNG Report ID: [id number] Reading Location: [facility] Narrative 11/24/2022 3:05 PM CDT EXAM DESCRIPTION: [...] mass architectural distortion. These are considered benign. us Marlon ALCARAZ IMG MAMMO PROCEDURES Final Resu lt * Pap and High Risk HPV, reflex to Genotyping (09/01/2022 11:41 AM BRAKE LINING FINISHER) Thin prep (Pap test) 09/01/2022 11:41 AM BRAKE LINING FINISHER 09/02/2022 11:41 AM BRAKE LINING FINISHER Narrative PATHOLOGY [facility] - 09/04/2022 1:50 PM BRAKE LINING FINISHER [facility] Department of Pathology [address] [place] [address] Final Report with Addendum Note to Patients: [...] the details. Patient Name: NEVILLE PIERRE Address: [address] [place] [address] Gender: F : 1980 (Age: 42) Service: Location: N : [id number] [facility] #: [id number] Patient Type: [facility] SPECIMEN Taken: 09/01/2022 Received: 09/02/2022 Accessioned:: 09/03/2022 Reported: 09/04/2022 Physician(s): Marlon Olmedo PA-C [facility] Diagnosis: Source of Specimen: SCREENING THIN PREP IMAGED PAP w/ HPV Specimen Adequacy: - Satisfactory for evaluation; endocervical/transformation zone component present General Category: - Negative for intraepithelial lesion or malignancy RAFAEL Mora(ASCP) Report Electronically Reviewed and Signed Out By RAFAEL Mroa(ASCP) 09/04/2022 13:50:02Addenda: HPV Test Interpretation NEGATIVE for types 16, 18, 31, 33, 35, 39, 45, 51, 52, 56, 58, 59, 66 and 68. Test performed utilizing Gen-Probe Aptima assay. RAFAEL Bowser(ASCP)Report Electronically Reviewed and Signed Out By RAFAEL Bowser(ASCP) 09/04/2022 10:19:59 Specimen(s) Received: A: SCREENING THIN [...] determined by the Surgical Pathology Department at [facility] as part of an ongoing quality control chemist program and in compliance with federally mandated [...] characteristics determined by the Surgical Pathology Department [facility]. It has not been cleared or approved by the U. S. Food and Drug Administration. Marlon ALCARAZ LAB CYTOLOGY ORDERABLES Final R esult [facility] from Last 3 Months or Most Recently Relevant to Health Maintenance Insurance [facility] BL[facility] CHOICE OOS [facility]UE [facility] CHOICE OOS Member Subscriber Plan / Payer (Ef fective 2021-Present) Name:Neville Pierre Relation to Subscriber:Self Name:Neville Pierre Payer ID:[id number] (NAIC) Type:[employer] Address: [address] Advance Directives For more information, please contact: [phone] * Full Code (Latest Code Status on File) Date Activated Date Inactivated Comments 02/12/2023 10:20 PM 02/13/2023 3:54 PM Care Teams Loom Cleaner Relationship Specialty Start Date End Date Marlon Olmedo PA PCP - General Family Medicine 07/31/22
[2024-10-02 08:30] VITALS: BP 155/96; PULSE 100; RESP 16; O2SAT 98
--- NOTE | 2024-10-02 08:36 | ED.GENADULT ---
HPI - General Adult General Chief complaint: Wound/Laceration Stated complaint: thumb wound Time Seen by Provider: 10/02/24 08:26 History of Present Illness HPI narrative: A 44-year-old female presenting to the emergency department for evaluation for infected hangnail on her left thumb. Patient states few days ago she had been biting at her hangnail and did notice increased pain and swelling on the medial aspect of her left thumbnail. Related Data Home Medications ?Medication ?Instructions ?Recorded ?Confirmed ?Last Taken ?Type albuterol sulfate 90 mcg/actuation See Rx Instructions .Route .COMPLEX 08/04/23 08/04/23 Unknown History aerosol inhaler cetirizine 10 mg tablet 10 mg PO DAILY 08/04/23 08/04/23 Unknown History famotidine 20 mg tablet 20 mg PO BID 08/04/23 08/04/23 Unknown History lisinopril 20 mg tablet 20 mg PO DAILY 08/04/23 08/04/23 Unknown History nirmatrelvir 300 mg (150 mg See Rx Instructions .Route .COMPLEX 08/04/23 08/04/23 Unknown History x2)-ritonavir 100 mg tablet,dose pack (Paxlovid) Allergies Allergy/AdvReac Type Severity Reaction Status Date / Time cephalexin Allergy Mild Unknown Verified 10/02/24 08:21 latex Allergy Mild HIVES Verified 10/02/24 08:21 Review of Systems Review of Systems: All systems reviewed & are unremarkable except as noted in HPI and below PMFSH Past Medical History Medical History (Updated 10/02/24 @ 08:40 by Mack Kearney MD) ADHD OCD (obsessive compulsive disorder) History of bipolar disorder Miscarriage Pneumonia Anxiety Depression Social History Social History Smoking status: Current every day smoker Alcohol intake: current Gender identity (if verbalized by the patient): Female Exam Narrative: APPEARANCE: Well appearing, no pain, no distress, well-nourished. HEAD: normocephalic, atraumatic. EYES: PERRLA/EOMI, conjunctivae clear. NOSE: Normal no drainage EARS:TMS clear with good light reflex. THROAT: Pharynx clear, no exudate. NECK: Supple. No adenopathy, no masses. RESPIRATORY: Airway patent, respirations nonlabored. Clear to auscultation bilaterally, no rales, rhonchi, wheezing. CARDIOVASCULAR: Regular rate and rhythm without murmurs rubs or gallops. ABDOMINAL: Soft, nontender, nondistended, normal bowel sounds MUSCULOSKELETAL: Moves all extremities. Strength/ROM intact, No edema, No calf tenderness. NEURO: Alert. Cranial nerves II through XII intact. Good gait. Good coordination SKIN: Paronychia to medial left nail bed of the thumb. Course Vital Signs Vital signs: Vital Signs Temperature 98.2 F 10/02/24 08:22 Pulse Rate 107 H 10/02/24 08:22 Respiratory Rate 18 10/02/24 08:22 Blood Pressure 166/96 H 10/02/24 08:22 Pulse Oximetry 100 10/02/24 08:22 Oxygen Delivery Room Air 10/02/24 08:22 Temperature 98.2 F 10/02/24 08:22 Pulse Rate 60 10/02/24 09:25 Respiratory Rate 16 10/02/24 09:25 Blood Pressure 148/80 H 10/02/24 09:25 Pulse Oximetry 98 10/02/24 09:25 Oxygen Delivery Room Air 10/02/24 08:22 Procedures Abscess I/D hand: Date of Incision: 10/02/24 Time of Incision: 08:37 Side (if applicable): left Technique: other ( 18 gauge needle) Amount of fluid expressed (mL): 1 Irrigation: Yes Packing used?: none I&D Results: Pus Medical Decision Making MDM Narrative Medical decision making narrative: 44-year-old female presenting to the emergency department for evaluation for paronychia to left thumb. This was incised and drained using an 18 gauge needle. Patient did have large amount of feeling discharged patient did feel improved after the pressure was released. Patient has an allergy to Keflex. Patient will be started on Bactrim. First dose of Bactrim was provided in the emergency department. Patient was educated on reasons to return to the emergency department. Differential Diagnosis Differential Diagnosis: Paronychia, cellulitis, hangnail Vital Signs Vital Signs: Vital Signs Temperature 98.2 F 10/02/24 08:22 Pulse Rate 107 H 10/02/24 08:22 Respiratory Rate 18 10/02/24 08:22 Blood Pressure 166/96 H 10/02/24 08:22 Pulse Oximetry 100 10/02/24 08:22 Oxygen Delivery Room Air 10/02/24 08:22 Temperature 98.2 F 10/02/24 08:22 Pulse Rate 60 10/02/24 09:25 Respiratory Rate 16 10/02/24 09:25 Blood Pressure 148/80 H 10/02/24 09:25 Pulse Oximetry 98 10/02/24 09:25 Oxygen Delivery Room Air 10/02/24 08:22 Discharge Plan Discharge Clinical Impression: Paronychia Patient Disposition: Home, Self-Care Condition: Stable Instructions: Antibiotic Form, Paronychia (ED) Additional Instructions: antibiotic as directed until completed. Have close follow-up with your primary care physician. If you have any worsening symptoms then please call or return to the emergency department. Patient Language: Greenlandic Prescriptions: New sulfamethoxazole-trimethoprim [Bactrim DS] 800-160 mg tablet 1 tablet PO Q12H 5 Days Qty: 10 0RF No Action cetirizine 10 mg tablet 10 mg PO DAILY lisinopril 20 mg tablet 20 mg PO DAILY famotidine 20 mg tablet 20 mg PO BID albuterol sulfate 90 mcg/actuation HFA aerosol inhaler See Rx Instructions .ROUTE .COMPLEX Rx Instructions: Rx Paxlovid 300 mg (150 mg x 2)-100 mg tablets,dose pack See Rx Instructions .ROUTE .COMPLEX Rx Instructions: Rx Follow-up/Referrals: Honorio,Marlon Thompson PA-C [Primary Care Provider] -
--- OUTSIDE RECORDS SUMMARY | 2024-10-02 08:45 | XMS_ITS | Referral Summary ---
[facility] Address [address] [place] [address] Care Team Providers Care Client Service Consultant Name Role Phone Marlon Olmedo Primary Care Provider [phone] Allergies Active Allergy Reactions Criticality Noted Date [...] 10/09/2022 Assessment & Plan (10/09/2022 12:03 PM URINALYSIS TECHNICIAN): This is new, we discussed jqyt-jvx-tvcwrsx medications and quarantine and signs and symptoms that would warrant further evaluation and treatment Gastroesophageal reflux disease without esophagi tis 08/28/2022 Assessment & Plan (10/09/2022 12:02 PM URINALYSIS TECHNICIAN): Images from the original note were not [...] understanding Assessment & Plan (09/29/2022 9:03 AM URINALYSIS TECHNICIAN): Images from the original note were not [...] understanding Assessment & Plan (09/01/2022 10:02 AM URINALYSIS TECHNICIAN): Patient did have an episode where she had some mild anterior pain it has not reoccurred it was not with activity I discussed that would like to know if this happens again I want her to increase her Pepcid to twice a day Hives 07/31/2022 Assessment & Plan (09/01/2022 10:02 AM URINALYSIS TECHNICIAN): These are not controlled we are going back on her H1 and H2 blockers for couple weeks as these worked if her symptoms persist I plan on send her to Allergy immunology Assessment & Plan (07/31/2022 10:01 AM URINALYSIS TECHNICIAN): This is new an uncontrolled I suspected due to her rapid am going to block the H1 and H2 pathway for 30 days see if the hives resolve if they return after treatment we will suspect is due to the rabbit Primary hypertension 07/31/2022 Assessment & Plan (10/09/2022 12:03 PM URINALYSIS TECHNICIAN): Images from the original note were not included. This is a stable chronic condition. Monitor blood pressure, call if out of parameters as we discussed. Low sodium and caffeine diet. baby asa as discussed if applicable. Diet, exercise and weight reduction. Labs as ordered. F/U routine Assessment & Plan (09/29/2022 9:03 AM URINALYSIS TECHNICIAN): Images from the original note were not included. This is a stable chronic condition. Monitor blood pressure, call if out of parameters as we discussed. Low sodium and caffeine diet. baby asa as discussed if applicable. Diet, exercise and weight reduction. Labs as ordered. F/U routine Assessment & Plan (09/01/2022 10:03 AM URINALYSIS TECHNICIAN): This is not an optimal control am going to increase her lisinopril to 20 mg I ordered labs show do a 5 day blood pressure in 2 weeks Assessment & Plan (07/31/2022 10:01 AM URINALYSIS TECHNICIAN): This is new an uncontrolled am going to get her started on medications we will recheck her blood pressure at her next visit in 4 weeks and get labs Routine general medical exam ination at a health care facility 07/30/2022 Assessment & Plan (07/31/2022 10:02 AM URINALYSIS TECHNICIAN): Healthcare maintenance updated, mammogram ordered, we are scheduling a Pap smear and she is getting a tetanus shot today Vitamin D deficiency 04/28/2019 Anxiety disorder 04/11/2019 Smoker 04/11/2019 Benign nevus of skin 04/11/2019 ADHD Assessment & Plan (10/09/2022 12:02 PM URINALYSIS TECHNICIAN): CPM Assessment & Plan (09/29/2022 9:03 AM URINALYSIS TECHNICIAN): Not controlled , increased to 15 bid Assessment & Plan (09/01/2022 10:02 AM URINALYSIS TECHNICIAN): This is not controlled, I am going to give her Adderall 10 mg she will update me in 30 days she is taking this before Assessment & Plan (07/31/2022 10:01 AM URINALYSIS TECHNICIAN): This is uncontrolled and I am going [...] on file Legal Sex Female 7:08 PM URINALYSIS TECHNICIAN Gender Identity Not on file Sexual Orientation [...] on file Medical Devices Implanted Type Area Storage Wharfage Clerk Device Identifier Shelf Expiration Date Model / Serial / Lot Allosource 10cm Frozen Graft Bone Fibula Segment [id number] - [id number] - [id number] Implanted:Qty: 1 on 02/12/2023 by Clifford Dugan MD at [facility] Left: Humerus Allosource 01/27/2027 [id number] / [id number] / Synthes 3.5mm 2.9mm 44mm Self Tap Lock Stardrive Conical Head T15 Full 212.134 - [id number] Implanted:Qty: 1 on 02/12/2023 by Clifford Dugan MD at [facility] Left: Humerus Synthes I 212.134 / / Synthes 3.5mm 2.9mm 28mm Self Tap Lock Stardrive Conical Head T15 Full 212.110 - [id number] Implanted:Qty: 1 on 02/12/2023 by Clifford Dugan MD at [facility] Left: Humerus Synthes I 212.110 / / Synthes 3.5mm 2.9mm 26mm Self Tap Lock Stardrive Conical Head T15 Full 212.109 - [id number] Implanted:Qty: 1 on 02/12/2023 by Clifford Dugan MD at [facility] Left: Humerus Synthes I 212.109 / / Synthes Lcp Combi Philos 11l40i3.5mm 3 Hole Shaft Lock Compression 241.901 - [id number] Implanted:Qty: 1 on 02/12/2023 by Clifford Dugan MD at [facility] Left: Humerus Synthes I 241.901 / / Synthes 3.5mm 2.9mm 50mm Self Tap Lock Stardrive Conical Head T15 Full 212.121 - [id number] Implanted:Qty: 1 on 02/12/2023 by Clifford Dugan MD at [facility] Left: Humerus Synthes I 212.121 / / Synthes 3.5mm 2.9mm 38mm Self Tap Lock Stardrive Conical Head T15 Full 212.116 - [id number] Implanted:Qty: 1 on 02/12/2023 by Clifford Dugan MD at [facility] Left: Humerus Synthes I 212.116 / / Synthes 3.5mm 2.9mm 52mm Self Tap Lock Fix Angle Low Profile Pelvis Full 212.122 - [id number] Implanted:Qty: 1 on 02/12/2023 by Clifford Dugan MD at [facility] Left: Humerus Synthes I 212.122 / / Synthes 3.5mm 2.9mm 45mm Self Tap Lock Stardrive Conical Head T15 Full 212.119 - [id number] Implanted:Qty: 2 on 02/12/2023 by Clifford Dugan MD at [facility] Left: Humerus Synthes I 212.119 / / Synthes 3.5mm 6mm 32mm 2.5mm Self Tap Small Hexagonal Socket Low Profile 204.832 - [id number] Implanted:Qty: 2 on 02/12/2023 by Clifford Dugan MD at [facility] Left: Humerus Synthes I 204.832 / / Synthes 3.5mm 2.9mm 46mm Self Tap Lock Stardrive Conical Head T15 Full 212.136 - [id number] Implanted:Qty: 2 on 02/12/2023 by Clifford Dugan MD at [facility] Left: Humerus Synthes I 212.136 / / Explanted Type Area Storage Wharfage Clerk Device Identifier Shelf Expiration Date Model / Serial / Lot Synthes Lcp 1.6mm 200mm Drill Tip Percutaneous Guidewire Orthopedic 001 - [id number] Explanted:Qty: 2 on 02/12/2023 by Clifford Dugan MD at [facility] Left: Humerus Synthes I / / Procedures Procedure Name Priority Date/Time Associated Diagnosis Comments DIAGNOSTIC MAMMOGRAM BILATERAL W DELPHINE Schedule Routine, Read Routine (OP Routine) 11/24/2022 2:40 PM CDT Abnormal mammogram PAP AND HIGH RISK HPV, REFLEX TO GENOTYPING Routine 09/01/2022 11:41 AM URINALYSIS TECHNICIAN Routine general medical examination at a health [...] Indio Mir M.D. RL: RL Report ID: [id number] [facility] Narrative 11/24/2022 3:05 PM CDT EXAM DESCRIPTION: [...] HPV, reflex to Genotyping (09/01/2022 11:41 AM URINALYSIS TECHNICIAN) Thin prep (Pap test) 09/01/2022 11:41 AM URINALYSIS TECHNICIAN 09/02/2022 11:41 AM URINALYSIS TECHNICIAN Narrative PATHOLOGY [facility] - 09/04/2022 1:50 PM URINALYSIS TECHNICIAN [facility] Department of Pathology [address] [place], [place] [id number] Final Report with Addendum Note to Patients: [...] the details. Patient Name: NEVILLE PIERRE Address: [address] [place] [address] Gender: F : 1980 (Age: 42) Service: Location: N : [id number] Hospital #: [id number] Patient Type: [facility] SPECIMEN Taken: 09/01/2022 Received: 09/02/2022 Accessioned:: 09/03/2022 Reported: 09/04/2022 Physician(s): Marlon Olmedo PA-C [facility] Diagnosis: Source of Specimen: SCREENING THIN PREP [...] determined by the Surgical Pathology Department at [facility] as part of an ongoing quality assurance director program and in compliance with federally mandated [...] characteristics determined by the Surgical Pathology Department [facility]. It has not been cleared or approved by the U. S. Food and Drug Administration. Marlon [facility] LAB CYTOLOGY ORDERABLES Final R esult [facility] from Last 3 Months or Most Recently Relevant to Health Maintenance Insurance [facility] Member Subscriber Plan / Payer (Ef fective 2020-Present) Name:Neville Pierre Relation to Subscriber:Self Name:Neville Pierre Payer ID:[id number] (NAIC) Type:MEDICAID RISK OTHER Address: [address] OOS [facility] BLUE [facility] CHOICE OOS [facility] CHOICE OOS Member Subscriber Plan / Payer (Ef fective 2021-Present) Name:Neville Pierre Relation to Subscriber:Self Name:Neville Pierre Payer ID:[id number] (NAIC) Type:Right [employer] Address: [address] Advance Directives For more information, please contact: [phone] * Full Code (Latest Code Status on File) Date Activated Date Inactivated Comments 02/12/2023 10:20 PM 02/13/2023 3:54 PM Care Teams Client Service Consultant Relationship Specialty Start Date End Date Marlon Olmedo PA PCP - General Family Medicine 07/31/22
--- OUTSIDE RECORDS SUMMARY | 2024-10-02 08:45 | XMS_ITS | Clinical Summary ---
Author Organization [facility] Address [address] [place] [address] Care Team Providers Care Multiple Pressure Riveter Operator Name Role Phone Marlon Olmedo Primary Care Provider [phone] Allergies Active Allergy Reactions Criticality Noted Date [...] 10/09/2022 Assessment & Plan (10/09/2022 12:03 PM FARM CREW MEMBER): This is new, we discussed tkqq-mej-tymtarh medications and quarantine and signs and symptoms that would warrant further evaluation and treatment Gastroesophageal reflux disease without esophagi tis 08/28/2022 Assessment & Plan (10/09/2022 12:02 PM FARM CREW MEMBER): Images from the original note were not [...] understanding Assessment & Plan (09/29/2022 9:03 AM FARM CREW MEMBER): Images from the original note were not [...] understanding Assessment & Plan (09/01/2022 10:02 AM FARM CREW MEMBER): Patient did have an episode where she had some mild anterior pain it has not reoccurred it was not with activity I discussed that would like to know if this happens again I want her to increase her Pepcid to twice a day Hives 07/31/2022 Assessment & Plan (09/01/2022 10:02 AM FARM CREW MEMBER): These are not controlled we are going back on her H1 and H2 blockers for couple weeks as these worked if her symptoms persist I plan on send her to Allergy immunology Assessment & Plan (07/31/2022 10:01 AM FARM CREW MEMBER): This is new an uncontrolled I suspected due to her rapid am going to block the H1 and H2 pathway for 30 days see if the hives resolve if they return after treatment we will suspect is due to the rabbit Primary hypertension 07/31/2022 Assessment & Plan (10/09/2022 12:03 PM FARM CREW MEMBER): Images from the original note were not included. This is a stable chronic condition. Monitor blood pressure, call if out of parameters as we discussed. Low sodium and caffeine diet. baby asa as discussed if applicable. Diet, exercise and weight reduction. Labs as ordered. F/U routine Assessment & Plan (09/29/2022 9:03 AM FARM CREW MEMBER): Images from the original note were not included. This is a stable chronic condition. Monitor blood pressure, call if out of parameters as we discussed. Low sodium and caffeine diet. baby asa as discussed if applicable. Diet, exercise and weight reduction. Labs as ordered. F/U routine Assessment & Plan (09/01/2022 10:03 AM FARM CREW MEMBER): This is not an optimal control am going to increase her lisinopril to 20 mg I ordered labs show do a 5 day blood pressure in 2 weeks Assessment & Plan (07/31/2022 10:01 AM FARM CREW MEMBER): This is new an uncontrolled am going to get her started on medications we will recheck her blood pressure at her next visit in 4 weeks and get labs Routine general medical exam ination at a health care facility 07/30/2022 Assessment & Plan (07/31/2022 10:02 AM FARM CREW MEMBER): Healthcare maintenance updated, mammogram ordered, we are scheduling a Pap smear and she is getting a tetanus shot today Vitamin D deficiency 04/28/2019 Anxiety disorder 04/11/2019 Smoker 04/11/2019 Benign nevus of skin 04/11/2019 ADHD Assessment & Plan (10/09/2022 12:02 PM FARM CREW MEMBER): CPM Assessment & Plan (09/29/2022 9:03 AM FARM CREW MEMBER): Not controlled , increased to 15 bid Assessment & Plan (09/01/2022 10:02 AM FARM CREW MEMBER): This is not controlled, I am going to give her Adderall 10 mg she will update me in 30 days she is taking this before Assessment & Plan (07/31/2022 10:01 AM FARM CREW MEMBER): This is uncontrolled and I am going [...] on file Legal Sex Female 7:08 PM FARM CREW MEMBER Gender Identity Not on file Sexual Orientation [...] Vaccines Discontinued Medical Devices Implanted Type Area Amusement Or Recreation Card Checker Device Identifier Shelf Expiration Date Model / Serial / Lot Allosource 10cm Frozen Graft Bone Fibula Segment [id number] - [id number] - [id number] Implanted:Qty: 1 on 02/12/2023 by Clifford Dugan MD at [facility] Left: Humerus Allosource 01/27/2027 [id number] / [id number] / Synthes 3.5mm 2.9mm 44mm Self Tap Lock Stardrive Conical Head T15 Full 212.134 - [id number] Implanted:Qty: 1 on 02/12/2023 by Clifford Dugan MD at [facility] Left: Humerus Synthes I 212.134 / / Synthes 3.5mm 2.9mm 28mm Self Tap Lock Stardrive Conical Head T15 Full 212.110 - [id number] Implanted:Qty: 1 on 02/12/2023 by Clifford Dugan MD at [facility] Left: Humerus Synthes I 212.110 / / Synthes 3.5mm 2.9mm 26mm Self Tap Lock Stardrive Conical Head T15 Full 212.109 - [id number] Implanted:Qty: 1 on 02/12/2023 by Clifford Dugan MD at [facility] Left: Humerus Synthes I 212.109 / / Synthes Lcp Combi Philos [id number] 3 Hole Shaft Lock Compression 241.901 - [id number] Implanted:Qty: 1 on 02/12/2023 by Clifford Dugan MD at [facility] Left: Humerus Synthes I 241.901 / / Synthes 3.5mm 2.9mm 50mm Self Tap Lock Stardrive Conical Head T15 Full 212.121 - [id number] Implanted:Qty: 1 on 02/12/2023 by Clifford Dugan MD at [facility] Left: Humerus Synthes I 212.121 / / Synthes 3.5mm 2.9mm 38mm Self Tap Lock Stardrive Conical Head T15 Full 212.116 - [id number] Implanted:Qty: 1 on 02/12/2023 by Clifford Dugan MD at [facility] Left: Humerus Synthes I 212.116 / / Synthes 3.5mm 2.9mm 52mm Self Tap Lock Fix Angle Low Profile Pelvis Full 212.122 - [id number] Implanted:Qty: 1 on 02/12/2023 by Clifford Dugan MD at [facility] Left: Humerus Synthes I 212.122 / / Synthes 3.5mm 2.9mm 45mm Self Tap Lock Stardrive Conical Head T15 Full 212.119 - [id number] Implanted:Qty: 2 on 02/12/2023 by Clifford Dugan MD at [facility] Left: Humerus Synthes I 212.119 / / Synthes 3.5mm 6mm 32mm 2.5mm Self Tap Small Hexagonal Socket Low Profile 204.832 - [id number] Implanted:Qty: 2 on 02/12/2023 by Clifford Dugan MD at [facility] Left: Humerus Synthes I 204.832 / / Synthes 3.5mm 2.9mm 46mm Self Tap Lock Stardrive Conical Head T15 Full 212.136 - [id number] Implanted:Qty: 2 on 02/12/2023 by Clifford Dugan MD at [facility] Left: Humerus Synthes I 212.136 / / Explanted Type Area Amusement Or Recreation Card Checker Device Identifier Shelf Expiration Date Model / Serial / Lot Synthes Lcp 1.6mm 200mm Drill Tip Percutaneous Guidewire Orthopedic - [id number] Explanted:Qty: 2 on 02/12/2023 by Clifford Dugan MD at [facility] Left: Humerus Synthes I / / Procedures Procedure Name Priority Date/Time Associated Diagnosis Comments DIAGNOSTIC MAMMOGRAM BILATERAL W DELPHINE Schedule Routine, Read Routine (OP Routine) 11/24/2022 2:40 PM CDT Abnormal mammogram PAP AND HIGH RISK HPV, REFLEX TO GENOTYPING Routine 09/01/2022 11:41 AM FARM CREW MEMBER Routine general medical examination at a [facility] care facility from Last 3 Months [...] Indio Mir M.D. RL: YOUNG Report ID: [id number] Reading Location: [facility] Narrative 11/24/2022 3:05 PM CDT EXAM DESCRIPTION: [...] HPV, reflex to Genotyping (09/01/2022 11:41 AM FARM CREW MEMBER) Thin prep (Pap test) 09/01/2022 11:41 AM FARM CREW MEMBER 09/02/2022 11:41 AM FARM CREW MEMBER Narrative PATHOLOGY [facility] - 09/04/2022 1:50 PM FARM CREW MEMBER [facility] Department of Pathology [address] [place] [address] Final Report with Addendum Note to Patients: [...] details. Patient Name: NEVILLE PIERRE Address: [address] [place] [address] Gender: F : 1980 (Age: 42) Service: Location: N : [id number] [facility] #: [id number] Patient Type: [facility] SPECIMEN Taken: 09/01/2022 Received: 09/02/2022 Accessioned:: 09/03/2022 Reported: 09/04/2022 Physician(s): Marlon Olmedo PA-C [facility] Diagnosis: Source of Specimen: SCREENING THIN PREP IMAGED PAP w/ HPV Specimen Adequacy: - Satisfactory for evaluation; endocervical/transformation zone component present General Category: - Negative for intraepithelial lesion or malignancy RAFAEL Mora(ASCP) Report Electronically Reviewed and Signed Out By RAFAEL Mora(ASCP) 09/04/2022 13:50:02Addenda: HPV Test Interpretation NEGATIVE for [...] determined by the Surgical Pathology Department at [facility] as part of an ongoing quality reviewer program and in compliance with federally mandated [...] characteristics determined by the Surgical Pathology Department [facility]. It has not been cleared or approved by the U. S. Food and Drug Administration. Marlon [facility] LAB CYTOLOGY ORDERABLES Final R esult [facility] from Last 3 Months or Most Recently Relevant to Health Maintenance Insurance [facility] BLUE [facility] CHOICE OOS [facility] CHOICE OOS BLUE [facility] CHOICE OOS Member Subscriber Plan / Payer (Ef fective 2021-Present) Name:Neville Pierre Relation to Subscriber:Self Name:Neville Pierre Payer ID:[id number] (NAIC) Type:[employer] Address: [address] Advance Directives For more information, please contact: [phone] * Full Code (Latest Code Status on File) Date Activated Date Inactivated Comments 02/12/2023 10:20 PM 02/13/2023 3:54 PM Care Teams Multiple Pressure Riveter Operator Relationship Specialty Start Date End Date Marlon Olmedo PA PCP - General Family Medicine 07/31/22
[2024-10-02 09:25] VITALS: BP 148/80; PULSE 60; RESP 16; O2SAT 98
[2024-10-02] MEDS: SULFAMETHOXAZOLE/TRIMETHOPRIM 800/160 MG DS TABLET 1 TAB PO (09:35)
== END 2024-10-02 09:38 | disposition home or self-care (01) ==
LOC: ANHED 08:43
PROVIDERS: Emergency Provider Emergency Medicine; PCP Physician Assistant
DX: L03.012 Cellulitis of left finger (principal); Z87.01 Personal history of pneumonia (recurrent); F17.200 Nicotine dependence, unspecified, uncomplicated
CPT/HCPCS: 10060; 26010; 99283; A9270